=== PATIENT | female | born 2005 | race African-American/Black ===

== ENCOUNTER 2024-01-17 18:31 | Emergency (ER) | payer OTHER ==
[~2024-01-17] VITALS: Ht 160 cm; Wt 57.8 kg
[2024-01-17 19:14] LABS: HEMATOCRIT 40.4 % (36.0-47.0); MEAN CORPUSCULAR VOLUME 90.8 fl (80.0-96.0); RED BLOOD COUNT 4.45 10^6/uL (4.00-5.40); WHITE BLOOD COUNT 7.3 10^3/uL (4.0-10.0)
[2024-01-17 19:15] LABS: BASO # 0.1 10^3/uL (0.0-0.2); BASO % 0.7 % (0.0-1.0); EOS # 0.1 10^3/uL (0.0-0.5); EOS % 1.5 % (0.0-3.0); LYMPH # 1.7 10^3/uL (1.5-5.0); LYMPH % 23.8 % (24.0-44.0); MEAN CORPUSCULAR HEMOGLOBIN 31.5 pg (27.0-33.0); MEAN CORPUSCULAR HGB CONC 34.7 g/dl (32.0-36.5); MONO # 0.5 10^3/uL (0.0-0.8); MONO % 6.3 % (2.0-8.0); NEUTROPHILS # 4.9 10^3/uL (1.5-8.5); NEUTROPHILS % 67.4 % (36.0-66.0); PLATELET COUNT, AUTOMATED 276 10^3/uL (150-450)
[2024-01-17 19:38] LABS: HCG, SERUM QUANTITATIVE < 2.6 MIU/ML (<4.2)
[2024-01-17 19:39] VITALS: BP 105/64; TEMP 97.8; O2SAT 100
[2024-01-17 19:40] LABS: BLOOD UREA NITROGEN 13 MG/DL (9-23); CALCIUM LEVEL 9.5 MG/DL (8.5-10.1); CARBON DIOXIDE LEVEL 27 MMOL/L (20-31); CHLORIDE LEVEL 107 MMOL/L (98-107); GLUCOSE, FASTING 81 MG/DL (60-100); POTASSIUM SERUM 4.8 MMOL/L (3.5-5.1); SODIUM LEVEL 140 MMOL/L (136-145)
== END 2024-01-17 19:40 | disposition home or self-care (01) ==
LOC: M ED 18:31
DX: N92.0 Excessive and frequent menstruation with regular cycle (principal); Z88.8 Allergy status to other drugs, medicaments and biological substances

== ENCOUNTER 2024-02-21 18:01 | Emergency (ER) | payer OTHER ==
[~2024-02-21] VITALS: Ht 160 cm; Wt 58.4 kg
[2024-02-21] MEDS: METOCLOPRAMIDE 5 MG TAB PO ONE (19:56)
[2024-02-21 20:14] VITALS: BP 99/59; TEMP 98.9; O2SAT 100
== END 2024-02-21 20:17 | disposition home or self-care (01) ==
LOC: M ED 18:01
DX: R51.9 Headache, unspecified (principal); S06.0X0A Concussion without loss of consciousness, initial encounter; Y92.9 Unspecified place or not applicable; Y93.9 Activity, unspecified; Y99.9 Unspecified external cause status; W22.09XA Striking against other stationary object, initial encounter; Z88.8 Allergy status to other drugs, medicaments and biological substances; Z79.1 Long term (current) use of non-steroidal anti-inflammatories (NSAID); Z79.899 Other long term (current) drug therapy

== ENCOUNTER 2024-02-23 06:47 | Emergency (ER) | payer OTHER ==
[~2024-02-23] VITALS: Ht 160 cm; Wt 58.0 kg
[2024-02-23 06:47] VITALS: BP 105/57; TEMP 97.5; O2SAT 99
[2024-02-23] MEDS: FIORICET TAB PO ONE (08:02)
[2024-02-23] MEDS ORDERED: FIOR1CAP PO (09:03)
[2024-02-23] MEDS ORDERED: ONDA4TAB6 PO (09:03)
== END 2024-02-23 09:07 | disposition home or self-care (01) ==
LOC: M ED 06:47
DX: R51.9 Headache, unspecified (principal); S06.0X0A Concussion without loss of consciousness, initial encounter; Y92.9 Unspecified place or not applicable; Y93.9 Activity, unspecified; Y99.9 Unspecified external cause status; Z88.8 Allergy status to other drugs, medicaments and biological substances; Z79.1 Long term (current) use of non-steroidal anti-inflammatories (NSAID); Z79.899 Other long term (current) drug therapy

== ENCOUNTER 2024-07-26 02:01 | Emergency (ER) | payer OTHER ==
[~2024-07-26 02:01] MED LIST: FIOR1CAP PO; ONDA-282 PO
[2024-07-26] MEDS: ACETAMINOPHEN 325 MG TAB PO ONE (03:11)
[2024-07-26] MEDS: CEPHALEXIN 500 MG CAP PO ONE (05:28)
[2024-07-26] MEDS ORDERED: CEPH500C PO (06:04)
[2024-07-26 07:24] VITALS: BP 100/52; TEMP 97.6; O2SAT 99
== END 2024-07-26 07:26 | disposition home or self-care (01) ==
LOC: M ED 02:01
DX: S01.511A Laceration without foreign body of lip, initial encounter (principal); S50.11XA Contusion of right forearm, initial encounter; Y92.59 Other trade areas as the place of occurrence of the external cause; Y93.9 Activity, unspecified; Y99.9 Unspecified external cause status; Y04.2XXA Assault by strike against or bumped into by another person, initial encounter; Z88.8 Allergy status to other drugs, medicaments and biological substances; Z79.1 Long term (current) use of non-steroidal anti-inflammatories (NSAID); Z79.2 Long term (current) use of antibiotics